=== PATIENT | female | born 1995 | race Caucasian/White ===

== ENCOUNTER 2018-08-28 10:57 | Emergency (ER) | payer SELFPAY ==
[2018-08-28 11:11] VITALS: BP 123/80; PULSE 131; TEMP 98.4; BMI 27.4
--- NOTE | 2018-08-28 11:54 | PDOC ---
History of Present Illness - General Chief Complaint: Vomiting/Diarrhea Stated Complaint: VOMITING / NAUSEA / STOMACHE PAIN Time Seen by Provider: 08/28/18 11:38 History Source: Patient Exam Limitations: No Limitations - History of Present Illness Initial Comments: 08/28/18 11:54 23 yo F w/ no sig PMHx comes in c/o diffuse abdominal discomfort, bodyaches, malaise, multiple episodes of NBNB vomiting and NB diarrhea, more than 10 episodes each, lightheadedness, low back pain with leg pain bilaterally, decrease in appetite, mild decrease in urination, no known sick contacts, no recent travel. Pt says that it all started after she ate at [employer] yesterday, she had eggs, roth, hash brown, pancakes. No URI symptoms, no headache, no neck stiffness/pain, no rash, no recent travel. Past History - Past Medical History Allergies/Adverse Reactions: Allergies Allergy/AdvReac Type Severity Reaction Status Date / Time No Known Allergies Allergy Verified 08/28/18 11:08 Home Medications: Ambulatory Orders NK [No Known Home Medication] 08/28/18 COPD: No - Suicide/Smoking/Psychosocial Hx Smoking History: Never smoked Review of Systems - Review of Systems Able to Perform ROS?: Yes Constitutional: Yes: Malaise. No: Chills, Fever, Night Sweats HEENTM: No: Eye Pain, Recent change in vision, Throat Pain Respiratory: No: Cough, Shortness of Breath Cardiac (ROS): No: Chest Pain, Palpitations, Chest Tightness ABD/GI: Yes: Diarrhea, Nausea, Vomiting, Abdominal cramping : No: Dysuria, Hematuria Integumentary: No: Rash Neurological: No: Headache, Numbness, Dizziness Psychiatric: Yes: Change in Appetite Endocrine: No: Unexplained Weight Loss *Physical Exam - Vital Signs Last Vital Signs Temp Pulse Resp BP Pulse Ox 98.4 F 131 H 18 123/80 99 08/28/18 11:09 08/28/18 11:09 08/28/18 11:09 08/28/18 11:09 08/28/18 11:09 - Physical Exam General Appearance: Yes: Nourished. No: Apparent Distress HEENT: positive: JULIANNA, Normal ENT Inspection, Normal Voice. negative: Pale Conjunctivae, Scleral Icterus (R), Scleral Icterus (L) Neck: positive: Supple. negative: Decreased range of motion, Tender midline Respiratory/Chest: positive: Lungs Clear, Normal Breath Sounds. negative: Respiratory Distress, Accessory Muscle Use Cardiovascular: positive: Regular Rhythm, Regular Rate Gastrointestinal/Abdominal: positive: Normal Bowel Sounds, Soft. negative: Tender, Decreased BS, Guarding, Rebound, Tenderness (no tenderness at McBurney' s point, (-)Rosving sign, (-)Psoas sign) Musculoskeletal: positive: Normal Inspection. negative: CVA Tenderness, CVA Tenderness (R), CVA Tenderness (L), Decreased Range of Motion, Vertebral Tenderness Extremity: positive: Normal Capillary Refill, Normal Inspection, Normal Range of Motion, Other (equal patellar reflexes, full sensory and motor function LEs) . negative: Tender, Delayed Capillary Refill, Pedal Edema, Calf Tenderness, Erythema Integumentary: positive: Normal Color, Dry. negative: Jaundice, Rash Neurologic: positive: Fully Oriented, Alert, Normal Mood/Affect ED Treatment Course - LABORATORY CBC & Chemistry Diagram: 08/28/18 12:35 08/28/18 12:35 Medical Decision Making - Medical Decision Making 08/28/18 12:14 23 yo F w/ likely viral gastroenteritis. Will line and lab, check UA, UCG, give IV fluids, pepcid, maalox, motrin for bodyaches. Pt denies nausea at this time. Then will reassess 08/28/18 13:49 Pt feeling better, doing PO challenge with crackers, bread and water. Still tachycardic at 110, will give another liter of fluids. UA pending. 08/28/18 14:37 08/28/18 15:23 Pt feeling a lot better, vitals WNLs, HR 94, O2sat 97%, she says that she is hungry and would like to get discharged. Labs reviewed, WNLs Abdomen soft NT ND. Will discharge with PMD follow up, bland diet Return for worsening/concerning symptoms Pt verbalizes understanding and agrees with plan. 08/28/18 15:25 *DC/Admit/Observation/Transfer Diagnosis at time of Disposition: Gastroenteritis - Discharge Dispostion Disposition: HOME Condition at time of disposition: Stable Decision to Admit order: No - Referrals Referrals: Carla Max [Primary Care Provider] - - Patient Instructions Printed Discharge Instructions: Gastroenteritis Diet, DI for Viral Gastroenteritis -- Adult Additional Instructions: Rest and drink plenty of fluids. Follow up with your regular doctor. Follow a bland diet as described and return for worsening/concerning symptoms. No dairy/ greasy foods. Thank you. - Post Discharge Activity
[2018-08-28] MEDS ORDERED: SODIUM CHLORIDE 1,000 ML IV STA ×2 (11:57→13:35)
[2018-08-28] MEDS ORDERED: IBUPROFEN 600 MG TABLET (FP) PO ONE ×2 (12:01→12:17)
[2018-08-28] MEDS ORDERED: MAG HYDROX/AL HYDROX/SIMETH 30 ML UNIT-DOSE CUP PO ONE (12:02)
[2018-08-28] MEDS ORDERED: FAMOTIDINE 20 MG/50 ML IVPB 20 MG/50 ML MG IVPB ONE ×2 (12:02→12:17)
[2018-08-28] MEDS ORDERED: MAG HYDROX/AL HYDROX/SIMETH 30 ML UNIT-DOSE CUP ONE (12:17)
[2018-08-28 12:48] LABS: BASO % 0.1 % (0-2.0); HEMATOCRIT 39.5 % (32.4-45.2); HEMOGLOBIN 13.2 GM/dL (10.7-15.3); LYMPH % 5.9 % (8-40); MCH 27.4 pg (25.7-33.7); MCHC 33.3 g/dl (32.0-36.0); MEAN CELL VOLUME 82.3 fl (80-96); MONO % 5.6 % (3.8-10.2); NEUT % 88.4 % (42.8-82.8); PLATELET COUNT 211 K/MM3 (134-434); RDW 14.5 % (11.6-15.6); WHITE BLOOD COUNT 10.2 K/mm3 (4.0-10.0)
[2018-08-28 13:06] LABS: ALBUMIN 3.8 g/dl (3.4-5.0); ALK PHOS 75 U/L (45-117); ANION GAP 8 MMOL/L (8-16); BILIRUBIN,TOTAL 0.4 mg/dL (0.2-1); BLOOD UREA NITROGEN 12 mg/dL (7-18); CALCIUM 8.7 mg/dL (8.5-10.1); CHLORIDE 101 mmol/L (98-107); CO2 25 mmol/L (21-32); CREATININE 0.8 mg/dL (0.55-1.3); GLUCOSE,RANDOM 101 mg/dL (74-106); LIPASE 62 U/L (73-393); MAGNESIUM 2.2 mg/dL (1.8-2.4); PHOSPHOROUS 2.8 mg/dL (2.5-4.9); POTASSIUM 3.6 mmol/L (3.5-5.1); SGOT/AST 16 U/L (15-37); SGPT/ALT 19 U/L (13-61); SODIUM 133 mmol/L (136-145); TOT PROT 8.3 g/dl (6.4-8.2)
[2018-08-28 14:38] LABS: PH,URINE 5.5 (5.0-8.0); URINE APPEARANCE CLEAR; URINE BILIRUBIN NEGATIVE (NEGATIVE); URINE COLOR YELLOW; URINE GLUCOSE (UA) NEGATIVE (NEGATIVE); URINE KETONE NEGATIVE (NEGATIVE); URINE LEUK ESTERASE NEGATIVE (NEGATIVE); URINE NITRITE NEGATIVE (NEGATIVE); URINE PROTEIN NEGATIVE (NEGATIVE); URINE UROBILINOGEN 0.2 mg/dL (0.2-1.0)
[2018-08-28 14:41] LABS: HCG,QUALITATIVE URINE Negative
== END 2018-08-28 16:04 | disposition home or self-care (01) ==
LOC: JER 10:57
PROC: 3E0337Z Introduction of Electrolytic and Water Balance Substance into Peripheral Vein, Percutaneous Approach (ICD-10-PCS; principal; 2018-08-28)
PROC: 3E0337Z Introduction of Electrolytic and Water Balance Substance into Peripheral Vein, Percutaneous Approach (ICD-10-PCS; 2018-08-28)
PROC: 3E033GC Introduction of Other Therapeutic Substance into Peripheral Vein, Percutaneous Approach (ICD-10-PCS; 2018-08-28)
DX: K52.9 Noninfective gastroenteritis and colitis, unspecified (principal)
CPT/HCPCS: 36415; 80053; 81003; 83690; 83735; 84100; 84702; 84703; 85025; 87086; 99282-25; J7030